=== PATIENT | male | born 1985 | race American Indian/Alaskan Native ===

== ENCOUNTER 2021-09-04 18:08 | Emergency (ER) | payer SELFPAY ==
--- NOTE | 2021-09-05 07:24 | Emergency Department Report ---
ED Allergic Reaction HPI - General Chief complaint: Allergic Reaction Stated complaint: ALLERGIC REACTION Time Seen by Provider: 09/05/21 06:25 Source: patient Mode of arrival: Ambulatory Limitations: No Limitations - History of Present Illness Initial Comments: 36 yo M who present with bilateral forearm rash that started after some particles from overhead box that he lifted got on his forearm. It is associated with itchiness. Pt says he has tried triple antibiotics with minimal improvement. No warmth or fever reported. No other modifying or associated factors reported. - Related Data Previous Rx's Medication Instructions Recorded Last Taken Type diphenhydrAMINE [Benadryl CAP] 50 mg PO Q8HR PRN 5 Days #15 09/05/21 Unknown Rx capsule NS predniSONE [Deltasone] 40 mg PO QDAY 5 Days #10 tab NS 09/05/21 Unknown Rx ED Review of Systems ROS: Stated complaint: ALLERGIC REACTION Other details as noted in HPI Comment: All other systems reviewed and negative Skin: rash (bilateral forearm) ED Past Medical Hx - Past Medical History Previous Medical History?: No - Surgical History Past Surgical History?: No - Social History Smoking Status: Current Every Day Smoker - Medications Home Medications: Home Medications Medication Instructions Recorded Confirmed Last Taken Type diphenhydrAMINE [Benadryl CAP] 50 mg PO Q8HR PRN 5 Days #15 09/05/21 Unknown Rx capsule NS predniSONE [Deltasone] 40 mg PO QDAY 5 Days #10 tab NS 09/05/21 Unknown Rx ED Physical Exam - General Limitations: No Limitations General appearance: alert, in no apparent distress - Eye Eye exam: Present: normal appearance - ENT ENT exam: Present: normal exam, mucous membranes moist - Neck Neck exam: Present: normal inspection - Respiratory Respiratory exam: Present: normal lung sounds bilaterally. Absent: respiratory distress, accessory muscle use - Cardiovascular Cardiovascular Exam: Present: regular rate, normal rhythm, normal heart sounds - GI/Abdominal GI/Abdominal exam: Present: soft, tenderness - Extremities Exam Extremities exam: Present: other (bilateral forearm uticaria rash ) - Back Exam Back exam: Present: normal inspection - Neurological Exam Neurological exam: Present: alert - Psychiatric Psychiatric exam: Present: normal affect, normal mood - Skin Skin exam: Present: warm, normal color ED Course Vital Signs 09/04/21 09/05/21 18:12 03:06 Temperature 98.7 F 97.6 F Pulse Rate 83 59 L Respiratory 16 20 Rate Blood Pressure 123/100 Blood Pressure 118/70 [Left] O2 Sat by Pulse 98 96 Oximetry - Reevaluation(s) Reevaluation #1: 09/05/21 07:24 here localized rash on his bilateral forearm consistent with contact dermatitis-- given prednisone 60 mg PO x 1 and will discharge home to continue steroid and add benadryl -with close contact with PCP Critical care attestation.: If time is entered above; I have spent that time in minutes in the direct care of this critically ill patient, excluding procedure time. ED Disposition Clinical Impression: Contact dermatitis Qualifiers: Contact dermatitis type: unspecified Contact dermatitis trigger: unspecified trigger Qualified Code(s): L25.9 - Unspecified contact dermatitis, unspecified cause Disposition: HOME / SELF CARE / HOMELESS Is pt being admited?: No Does the pt Need Aspirin: No Condition: Stable Instructions: Contact Dermatitis, [id number] Additional Instructions: Always avoid allergen if known to prevent recurrent or worsen episode Take and complete your new allergy medication as prescribed Call and follow up with your doctor in the next 3-5 days for progress Call or return to ED if your symptoms worsen Prescriptions: diphenhydrAMINE [Benadryl CAP] 50 mg PO Q8HR PRN 5 Days #15 capsule NS PRN Reason: Allergic Reaction predniSONE [Deltasone] 40 mg PO QDAY 5 Days #10 tab NS Referrals: KELLY TEIXEIRA MD [Primary Care Provider] - 3-5 Days Time of Disposition: 07:28
[2021-09-05] MEDS ORDERED: predniSONE 20 MG TAB PO ONE (07:35)
[2021-09-05 07:57] VITALS: BP 122/76
== END 2021-09-05 07:55 | disposition home or self-care (01) ==
LOC: ED 18:08
DX: L29.9 Pruritus, unspecified (principal); F17.200 Nicotine dependence, unspecified, uncomplicated; Z79.899 Other long term (current) drug therapy
CPT/HCPCS: 96372; 99282

== ENCOUNTER 2021-11-11 19:12 | Emergency (ER) | payer SELFPAY ==
--- NOTE | 2021-11-12 02:30 | Emergency Department Report ---
ED General Adult HPI - General Chief complaint: Skin Rash Stated complaint: ALLERGIC REACTION Source: patient Mode of arrival: Ambulatory Limitations: No Limitations - History of Present Illness Initial comments: Patient is a 36-year-old -[place] male with no past medical history who presents to the ED with complaint of acute onset persistent left maxillary premolar and molar tooth ache with swollen gums and pain for the last 1 week. Patient also complains of mild penile pain due to dry scaly rashes on the penile shaft for the last 1 week. Patient denies dizziness, syncope, fever, chills, nausea and vomiting, traumatic injury, headache, penile discharge, dysuria, urinary frequency and urgency or low back pain. MD Complaint: Left maxillary premolar and molar toothache; swollen painful gums -: Gradual, week(s) (1) Location: mouth Radiation: non-radiation Severity scale (0 -10): 8 Quality: aching, sharp Consistency: constant Improves with: none Worsens with: eating Associated Symptoms: denies other symptoms. denies: chest pain, cough, diaphoresis, fever/chills, headaches, loss of appetite, malaise, nausea /vomiting, rash, seizure, shortness of breath, other Treatments Prior to Arrival: none - Related Data Previous Rx's Medication Instructions Recorded Last Taken Type diphenhydrAMINE [Benadryl CAP] 50 mg PO Q8HR PRN 5 Days #15 09/05/21 Unknown Rx capsule NS predniSONE [Deltasone] 40 mg PO QDAY 5 Days #10 tab NS 09/05/21 Unknown Rx Doxycycline Hyclate 100 mg PO Q12H #20 cap 11/12/21 Unknown Rx Ketorolac [Toradol] 10 mg PO Q8H PRN #20 tab 11/12/21 Unknown Rx Nystatin Oint [Mycostatin Oint] 1 applicatio TP BID #1 tube 11/12/21 Unknown Rx clindamycin HCL [Clindamycin HCl] 300 mg PO Q8H #30 cap 11/12/21 Unknown Rx traMADoL [Ultram] 50 mg PO Q6HR PRN #12 tablet 11/12/21 Unknown Rx Allergies Allergy/AdvReac Type Severity Reaction Status Date / Time No Known Allergies Allergy Verified 09/05/21 07:33 ED Review of Systems ROS: Stated complaint: ALLERGIC REACTION Other details as noted in HPI Constitutional: denies: chills, fever Eyes: denies: eye pain, eye discharge, vision change ENT: dental pain (left maxillary premolar and molar toothache; ), other (swollen gums and pain). denies: ear pain, throat pain Respiratory: denies: cough, shortness of breath, wheezing Cardiovascular: denies: chest pain, palpitations Endocrine: no symptoms reported Gastrointestinal: denies: abdominal pain, nausea, vomiting, diarrhea Genitourinary: other (penile pain and rash). denies: urgency, dysuria Musculoskeletal: denies: back pain, joint swelling, arthralgia Skin: denies: rash, lesions Neurological: denies: headache, weakness, paresthesias Psychiatric: denies: anxiety, depression Hematological/Lymphatic: denies: easy bleeding, easy bruising ED Past Medical Hx - Social History Smoking Status: Current Every Day Smoker - Medications Home Medications: Home Medications Medication Instructions Recorded Confirmed Last Taken Type diphenhydrAMINE [Benadryl CAP] 50 mg PO Q8HR PRN 5 Days #15 09/05/21 Unknown Rx capsule NS predniSONE [Deltasone] 40 mg PO QDAY 5 Days #10 tab NS 09/05/21 Unknown Rx Doxycycline Hyclate 100 mg PO Q12H #20 cap 11/12/21 Unknown Rx Ketorolac [Toradol] 10 mg PO Q8H PRN #20 tab 11/12/21 Unknown Rx Nystatin Oint [Mycostatin Oint] 1 applicatio TP BID #1 tube 11/12/21 Unknown Rx clindamycin HCL [Clindamycin HCl] 300 mg PO Q8H #30 cap 11/12/21 Unknown Rx traMADoL [Ultram] 50 mg PO Q6HR PRN #12 tablet 11/12/21 Unknown Rx ED Physical Exam - General Limitations: No Limitations General appearance: alert, in no apparent distress - Head Head exam: Present: atraumatic, normocephalic, normal inspection - Eye Eye exam: Present: normal appearance, PERRL, EOMI Pupils: Present: normal accommodation - ENT ENT exam: Present: mucous membranes moist, TM's normal bilaterally, normal external ear exam, other (Left maxillary premolar and molar teeth tenderness; left maxillary gingival tenderness and swelling) - Neck Neck exam: Present: normal inspection, full ROM. Absent: tenderness, lymphadenopathy - Respiratory Respiratory exam: Present: normal lung sounds bilaterally. Absent: respiratory distress, wheezes, rales, rhonchi, stridor, chest wall tenderness, accessory muscle use, decreased breath sounds, prolonged expiratory - Cardiovascular Cardiovascular Exam: Present: regular rate, normal rhythm, normal heart sounds. Absent: systolic murmur, diastolic murmur, rubs, gallop - GI/Abdominal GI/Abdominal exam: Present: soft, normal bowel sounds. Absent: tenderness, guarding, rebound, rigid, hyperactive bowel sounds, hypoactive bowel sounds, organomegaly, mass - exam: Present: normal inspection External exam: Present: normal external exam - Extremities Exam Extremities exam: Present: normal inspection, full ROM, normal capillary refill. Absent: tenderness, pedal edema, joint swelling, calf tenderness - Back Exam Back exam: Present: normal inspection, full ROM. Absent: tenderness, CVA tend erness (R), CVA tenderness (L), muscle spasm, paraspinal tenderness, vertebral tenderness - Neurological Exam Neurological exam: Present: alert, oriented X3, CN II-XII intact, normal gait, reflexes normal - Psychiatric Psychiatric exam: Present: normal affect, normal mood - Skin Skin exam: Present: warm, dry, intact, normal color. Absent: rash ED Course Vital Signs 11/12/21 00:00 Temperature 98.4 F Pulse Rate 68 Respiratory 18 Rate Blood Pressure 144/95 [Right] O2 Sat by Pulse 99 Oximetry ED Medical Decision Making - Medical Decision Making This is a 36-year-old -[place] male with no past medical history who presents to the ED with complaint of acute onset persistent left maxillary premolar and molar tooth ache with swollen gums and pain for the last 1 week. Patient also complains of mild penile pain due to dry scaly rashes on the penile shaft for the last 1 week. In the ED, patient is alert and oriented x3 and is not in any distress. Patient was discharged home on medications and advised to follow-up with his primary care physician in 7 to 10 days for reevaluation or return to the ED immediately if symptoms get worse. - Differential Diagnosis Dental abscess; gingivitis; dental caries; penile fungal infection Critical care attestation.: If time is entered above; I have spent that time in minutes in the direct care of this critically ill patient, excluding procedure time. ED Disposition Clinical Impression: Dental abscess, Acute gingivitis, Genital candidiasis in male Disposition: 01 HOME / SELF CARE / HOMELESS Is pt being admited?: No Does the pt Need Aspirin: No Condition: Stable Instructions: Dental Abscess, [id number], Genital Yeast Infection, Male Additional Instructions: Take medication with food, drink plenty of fluids, follow-up with your primary care physician in 7 to 10 days for reevaluation. Return to the ED immediately if symptoms get worse. Prescriptions: clindamycin HCL [Clindamycin HCl] 300 mg PO Q8H #30 cap Doxycycline Hyclate 100 mg PO Q12H #20 cap Nystatin Oint [Mycostatin Oint] 1 applicatio TP BID #1 tube Ketorolac [Toradol] 10 mg PO Q8H PRN #20 tab PRN Reason: Pain traMADoL [Ultram] 50 mg PO Q6HR PRN #12 tablet PRN Reason: Pain Referrals: [facility] [Provider Group] - 7-10 days Time of Disposition: 02:32 Print Language: OCCITAN
[2021-11-12 04:02] VITALS: BP 137/84
== END 2021-11-12 04:02 | disposition home or self-care (01) ==
LOC: ED 19:12
DX: K04.7 Periapical abscess without sinus (principal); K05.00 Acute gingivitis, plaque induced; B37.42 Candidal balanitis; F17.200 Nicotine dependence, unspecified, uncomplicated
CPT/HCPCS: 99282

== ENCOUNTER 2021-12-08 23:15 | Emergency (ER) | payer SELFPAY ==
[2021-12-08 23:21] VITALS: BP 148/93
== END 2021-12-09 07:05 | disposition home or self-care (01) ==
LOC: ED 23:15
DX: M79.10 Myalgia, unspecified site (principal); Z53.21 Procedure and treatment not carried out due to patient leaving prior to being seen by health care provider